=== PATIENT | male | born 1955 | race Caucasian/White ===

== ENCOUNTER → 2020-06-27 | Outpatient (CLI) | payer OTHER ==
--- NOTE | 2020-06-27 20:34 | RAD ---
Right Lower Extremity Venous Doppler: Reason for examination: Right lower extremity swelling for 10 days. The right lower extremity venous system was evaluated from the common femoral and greater saphenous veins distally to the calf veins with sunshine scale imaging, color flow imaging and spectral analysis. There is normal blood flow without deep venous thrombosis. There is normal response of the venous system to compression and augmentation. Impression: No deep venous thrombosis in the right lower extremity venous system. Electronically signed by: Lilly Kellogg MD (06/27/2020 8:31 PM) CJ
== END | disposition home or self-care (01) ==
LOC: US 19:57
PROVIDERS: ATTEND Family Medicine
DX: R22.41 Localized swelling, mass and lump, right lower limb (principal)
CPT/HCPCS: 93971